=== PATIENT | female | born 1955 | race Caucasian/White ===

== ENCOUNTER 2020-09-22 21:15 | Emergency (ER) | payer BC ==
[~2020-09-22] VITALS: Ht 167.6 cm; Wt 80.0 kg
[2020-09-22] MEDS ORDERED: TOPROL XL100 MG PO (21:48)
[2020-09-22] MEDS ORDERED: OMEPRAZOLE20 MG PO (21:48)
[2020-09-22] MEDS ORDERED: VITAMINS (21:49)
[2020-09-23 00:10] VITALS: BP 166/83
== END 2020-09-23 00:10 | disposition home or self-care (01) | DRG 125 ==
LOC: ED 21:15
DX: H01.001 Unspecified blepharitis right upper eyelid (principal); I10 Essential (primary) hypertension

== ENCOUNTER 2023-07-18 11:46 | Emergency (ER) | payer MEDICARE, BC ==
[~2023-07-18] VITALS: Ht 167.6 cm; Wt 93.4 kg
[~2023-07-18 11:46] MED LIST: OMEPRAZOLE20 MG PO; TOPROL XL100 MG PO; VITAMINS
[2023-07-18 14:00] VITALS: BP 164/82
[2023-07-18 14:30] VITALS: BP 156/86
[2023-07-18 14:40] VITALS: BP 156/86
== END 2023-07-18 14:51 | disposition home or self-care (01) ==
LOC: ED 11:46
DX: L76.32 Postprocedural hematoma of skin and subcutaneous tissue following other procedure (principal); I10 Essential (primary) hypertension; E78.00 Pure hypercholesterolemia, unspecified; Y83.1 Surgical operation with implant of artificial internal device as the cause of abnormal reaction of the patient, or of later complication, without mention of misadventure at the time of the procedure; Z96.653 Presence of artificial knee joint, bilateral